=== PATIENT | female | born 1930 | race Caucasian/White ===

== ENCOUNTER 2019-04-25 23:04 | Observation (INO) | payer OTHER ==
[~2019-04-25] VITALS: Ht 142.2 cm; Wt 47.2 kg
--- NOTE | 2019-04-25 23:06 | NUR ---
KHOIA ON GURNEY TO BED #8
[2019-04-25 23:10] VITALS: BP 143/74
--- NOTE | 2019-04-25 23:19 | NUR ---
PATIENT BIBA C/O HEADACHE. PT STATES "I FELT DIZZY, LIKE THE ROOM IS SPINNING". DENIES N/V/D; SKIN IS PINK/WARM/DRY; AAOX4, IN NO DISTRESS, PATIENT DENIES ANY PAIN AT THIS TIME, VSS; PATIENT POSITIONED FOR COMFORT; HOB ELEVATED; BEDRAILS UP X2; BED DOWN. DR. ZULETA MADE AWARE.
[2019-04-25] MEDS ORDERED: NACL 0.9% 500 ML IV SCH (23:36)
[2019-04-26 00:04] LABS: BASOPHILS # (AUTO) 0.1 K/uL (0.00-0.22); BASOPHILS % (AUTO) 1.7 % (0.0-2.0); EOSINOPHILS % (AUTO) 0.5 % (0.0-4.0); HEMATOCRIT 40.3 % (36-48); HEMOGLOBIN 13.1 g/dL (12.0-16.0); LYMPHOCYTES # (AUTO) 0.4 K/uL (2.5-16.5); LYMPHOCYTES % (AUTO) 6.1 % (20.5-51.1); MEAN CORPUSCULAR HEMOGLOBIN 29 pg (27-31); MEAN CORPUSCULAR HGB CONC 33 g/dL (33-37); MONOCYTES # (AUTO) 0.4 K/uL (0.8-1.0); MONOCYTES % (AUTO) 6.8 % (1.7-9.3); NEUTROPHILS # (AUTO) 5.1 K/uL (1.8-7.7); PLATELET COUNT (AUTO) 170 K/uL (140-450); RED BLOOD CELL COUNT(AUTO) 4.53 MIL/uL (4.20-5.40); RED CELL DISTRIBUTION WIDTH 15.9 % (11.6-13.7); WHITE BLOOD COUNT (AUTO) 6.1 K/uL (4.8-10.8)
[2019-04-26 00:10] LABS: ANION GAP 12.4 (8-16); CARBON DIOXIDE 26.5 mmol/L (21-32); CHLORIDE 106 mmol/L (98-107); GLUCOSE 156 mg/dL (74-106); POTASSIUM 3.9 mmol/L (3.5-5.1); SODIUM SERUM 141 mmol/L (136-145); UREA NITROGEN, BLOOD 29 mg/dL (7-18)
[2019-04-26 00:16] LABS: ALBUMIN 3.5 g/dL (3.4-5.0); ASPARTATE AMINOTRANSFERASE 67 U/L (15-37); TOTAL BILIRUBIN 0.6 mg/dL (0.0-1.0)
[2019-04-26 00:22] LABS: PROTHROMBIN TIME 26.8 secs (10.8-13.4)
[2019-04-26 00:24] LABS: NEUTROPHILS % (AUTO) 84.9 % (42.2-75.2)
[2019-04-26] MEDS ORDERED: ASPIRIN 81 MG TAB.CHEW PO ONE (00:45)
--- NOTE | 2019-04-26 01:18 | NUR ---
PT REMAINS GCS 15, RESPIRATIONS EVEN AND UNLABORED. VSS, NO ACUTE DISTRESS AT THIS TIME. WILL CONTINUE TO MONITOR
[2019-04-26 01:20] LABS: APPEARANCE,URINE CLEAR (CLEAR); BILIRUBIN,URINE NEGATIVE (NEGATIVE); BLOOD, URINE TRACE-I (NEGATIVE); COLOR,URINE YELLOW (YELLOW); LEUKOCYTE ESTERASE ,URINE NEGATIVE (NEGATIVE); NITRITE, URINE NEGATIVE (NEGATIVE); UGLUCOSE NEGATIVE (NEGATIVE)
--- NOTE | 2019-04-26 01:30 | NUR ---
RECEIVED REPORT FROM DARRYL ZHANG. TRANSFER OF CARE AT THIS TIME.
--- NOTE | 2019-04-26 01:35 | NUR ---
PT DAUGHTER CALLED, ANTHONY CONTACT # IS [phone]. DAUGHTER STATED THAT PT IS ON COUMADIN AND HAS MEDICAL HX OF ASTHMA, OPEN HEART SURGERY AND A MICHANICAL VALVE REPLACEMENT.
[2019-04-26 01:45] LABS: RBC,URINE 0-5 /HPF (0-5); WBC,URINE 0-5 /HPF (0-5)
[2019-04-26] MEDS ORDERED: HYDROcodone/APAP 5/325 MG 1 TAB TAB PO PRN (02:30)
[2019-04-26] MEDS ORDERED: ACETAMINOPHEN 325 MG TAB PO PRN (02:30)
[2019-04-26] MEDS ORDERED: ONDANSETRON 4 MG/2 ML VIAL IVP PRN (02:30)
--- NOTE | 2019-04-26 02:35 | NUR ---
Patient appears to be resting comfortably in bed. Vital Signs within normal limits. Respirations even and unlabored. Skin pink, warm, dry. No s/sx distress at this time.
[2019-04-26] MEDS ORDERED: ALBU0.0912 IH (02:49)
[2019-04-26] MEDS ORDERED: WARF2TAB79 PO (02:49)
[2019-04-26] MEDS ORDERED: FLUT1POW3 IH (02:49)
--- NOTE | 2019-04-26 02:55 | NUR ---
PT AMBULATED TO CHAIR WITH ASSIST TO PUT ON HOSPITAL SOCKS. PT REPORTS FEELING DIZZY WHILE AMBULATING.
--- NOTE | 2019-04-26 03:06 | NUR ---
Patient will be admitted to care of Dr. Wei. Admited to tele. Will go to room 110B. Belongings list completed. Report to DARRYL Wetzel.
[2019-04-26 03:10] VITALS: BP 130/89
--- NOTE | 2019-04-26 03:10 | NUR ---
PT BROUGHT UP TO THE FLOOR VIA GURNEY ESCORTED BY MARYCRUZ ANDREWS AND SHAISTA ANDREWS ER NURSES. PT WAS WHEELED TO ROOM 110 AND WALKED WITH ASSISTANCE TO ROOM 110 BED B. PT IS AOX3-4 NO C/O OF PAIN AND SKIN INTACT. PT HERE DUE TO NEAR SYNCOPAL EPISODE AT HOME. 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 MRSA SWAB DONE AND PT V/S FOLLOWS T 97.7 P 98 R18 B/P 130/89 02 97% ON ROOM AIR.
--- NOTE | 2019-04-26 03:45 | NUR ---
MD DR. QUICK IS PRIMARY , ORDERED N/S AT 75MLS/HR. PT IN LOW BED WITH ALL FALLS PRECAUTIONS IN PLACE. ALL REQUESTED NEEDS ATTENDED.
[2019-04-26 04:00] VITALS: BP 142/71
[2019-04-26] MEDS: NACL 0.9% 1,000 ML IV SCH ×2 (04:54→16:40)
--- NOTE | 2019-04-26 05:21 | NUR ---
PT IN BED C/O RESTLESS LEGS. SEQUENTIALS WERE ORDERED, [employer] IN[employer]GRATION SPECIALIST AWARE AND WILL BRING TO FLOOR. PT IS AWAKE C/O NO PAIN BUT LOWER LEGS FEEL DISCOMFORT. PT UP TO TOILET WITH ASSISTANCE ORTHOSTATIC B/P TAKEN STANDING (139/76) SITTING(140/70)/ AND LYING DOWN B/P (142/72). PT IV FEEL OUT OF LEFT AC WITH CANNULA INTACT. MAY TRY TO PUT ANOTHER IV IN OR WILL ENDORSE TO AM SHIFT TO DO. PT REMAINS ON FALLS PRECAUTIONS ALL REQUESTED NEEDS ATTENDED.
[2019-04-26 05:52] LABS: HEMATOCRIT 39.9 % (36-48); MEAN CORPUSCULAR HEMOGLOBIN 29 pg (27-31); MEAN CORPUSCULAR HGB CONC 33 g/dL (33-37); MEAN CORPUSCULAR VOLUME 88.3 fL (80-94); PLATELET COUNT (AUTO) 167 K/uL (140-450); RED BLOOD CELL COUNT(AUTO) 4.52 MIL/uL (4.20-5.40); RED CELL DISTRIBUTION WIDTH 15.9 % (11.6-13.7); WHITE BLOOD COUNT (AUTO) 6.5 K/uL (4.8-10.8)
[2019-04-26 06:30] LABS: LYMPHOCYTES % (MANUAL) 9 % (20-46); MONOCYTES % (MANUAL) 9 % (5-12)
[2019-04-26 06:49] LABS: ANION GAP 13.7 (8-16); CARBON DIOXIDE 23.6 mmol/L (21-32); CHLORIDE 107 mmol/L (98-107); CREATININE 0.9 mg/dL (0.6-1.3); GLUCOSE 118 mg/dL (74-106); POTASSIUM 4.3 mmol/L (3.5-5.1); SODIUM SERUM 140 mmol/L (136-145); UREA NITROGEN, BLOOD 27 mg/dL (7-18)
--- NOTE | 2019-04-26 07:25 | NUR ---
REPORT GIVEN TO PERCY ANDREWS DAYSHIFT NURSE AT BEDSIDE FOR CONTINUITY OF CARE. PT IN STABLE CONDITION.
--- NOTE | 2019-04-26 07:26 | NUR ---
RECEIVED REPORT FROM SHELVING SUPERVISOR NURSE. PATIENT LYING DOWN IN BED COMFORTABLY. NO DISTRESS NOTED. DENIES ANY PAIN. AAOX4, CALM, COOPERATIVE, SKIN COLOR APPROPRIATE TO ETHNICITY, WARM TO TOUCH. SKIN INTACT. RESPIRATIONS EVEN, UNLABORED, ON ROOM AIR. ABDOMEN SOFT, NON-DISTENDED. IV SITE INTACT, PATENT, AND RUNNING IVF PER MD ORDERS. REVIEWED PLAN OF CARE WITH PATIENT. PATIENT VERBALIZED UNDERSTANDING. SAFETY MEASURES IN PLACE, CALL LIGHT WITHIN REACH. WILL CONTINUE TO MONITOR.
[2019-04-26 08:00] VITALS: BP 113/62
--- NOTE | 2019-04-26 08:44 | NUR ---
PATIENT HAS BEEN SCREENED AND CATEGORIZED HIGH NUTRITION RISK. PATIENT WILL BE SEEN WITHIN 3-5 DAYS OF ADMISSION. 04/28/19-04/30/19 Addendum: 04/26/19 at [address] PATIENT HAS BEEN SCREENED AND CATEGORIZED MODERATE NUTRITION RISK. PATIENT WILL BE SEEN WITHIN 3-5 DAYS OF ADMISSION. 04/28/19-04/30/19
[2019-04-26] MEDS ORDERED: ALBUTEROL 0.083% 2.5 MG/3 ML NEBU INH PRN (09:15)
[2019-04-26] MEDS ORDERED: LOVENOX 1MG/KG Q12H SUBQ SCH (09:45)
[2019-04-26 09:53] LABS: PROTHROMBIN TIME 23.7 secs (10.8-13.4)
[2019-04-26 12:00] VITALS: BP 142/70
[2019-04-26] MEDS: DOCUSATE SODIUM 100 MG GELCAP PO PRN (13:00)
--- NOTE | 2019-04-26 13:00 | NUR ---
PATIENT REPORTS CONSTIPATION. COLACE GIVEN AT THIS TIME. WILL CONTINUE TO MONITOR.
--- NOTE | 2019-04-26 15:15 | NUR ---
Hiv Counselor Note: I received MD's snf order, physical therapy evaluation still spending.
[2019-04-26 16:00] VITALS: BP 122/74
--- NOTE | 2019-04-26 16:49 | NUR ---
PATIENT SITTING IN BED. NO DISTRESS NOTED. DENIES ANY PAIN. SCHEDULED MEDICATIONS DUE GIVEN. WILL CONTINUE TO MONITOR.
[2019-04-26] MEDS ORDERED: WARFARIN 1 MG TAB PO SCH (17:00)
--- NOTE | 2019-04-26 19:23 | NUR ---
GAVE REPORT TO SPENT GRAIN DRYER NURSE FOR CONTINUITY OF CARE. PATIENT IN STABLE CONDITION.
--- NOTE | 2019-04-26 19:25 | NUR ---
RECEIVED REPORT FROM PERCY ANDREWS DAYSHIFT NURSE AT BEDSIDE FOR CONTINUITY OF CARE, PT IN STABLE CONDITION.
--- NOTE | 2019-04-26 19:55 | NUR ---
PT IN BED WITH ALL FALLS PRECAUTIONS IN PLACE. PT IS AOX2 WITH NO C/O VOICED AT THIS TIME. RESPIRATIONS EVEN AND UNLABORED ON ROOM AIR. LUNGS CLEAR TO AUSCULTATION. RT AT BEDSIDE PROVIDING NEBULIZER TREATMENT. V/S FOLLOWS T 98.5 P 77 R 18 B/P 125/57 02 97% ON ROOM AIR. PT IV SITE ON RIGHT FOREARM INTACT AND RUNNING N/S AT 75MLS/HR ORDERED. CALL RUCKER IN REACH.
[2019-04-26 20:00] VITALS: BP 125/57
--- NOTE | 2019-04-26 20:00 | NUR ---
IV FLUIDS RUNNING N/S AT 75MLS/HR. VIA R FOREARM 22G IV SITE TOTAL IV FLUIDS 125MLS OF N/S INFUSED.
[2019-04-26] MEDS ORDERED: NON-FORMULARY ITEM (Warfarin Sodium* (Coumadin*) 1 TAB) PO SCH (21:00)
--- NOTE | 2019-04-26 21:25 | NUR ---
LATEST TROPONIN LEVEL IS 0.186 WHICH HAS BEEN TRENDING DOWN. [facility] CALLED AND MESSAGE LEFT WITH COMMUNICATIONS REPRESENTATIVE JESSY MIRAMONTES.
--- NOTE | 2019-04-26 22:00 | NUR ---
PT IN BED IV SITE RUNNING AT 75ML/HR OF N/S TOTAL OF 250 N/S THIS SHIFT IV SITE INTACT AND ASYMPTOMATIC.
--- NOTE | 2019-04-26 23:30 | NUR ---
PT IN BED NO S/S OF PAIN OR DISTRESS NOTED. ALL FALLS PRECAUTIONS IN PLACE. V/S FOLLOWS T 97.5 P 78 R 18 B/P 128/66 / 02 96% ON ROOM AIR. IV SITE ON RIGHT FOREARM INTACT AND FLUSHED PATENT. ALL REQUESTED NEEDS ATTENDED AND CALL RUCKER IN REACH.
[2019-04-27] VITALS: BP 124/61
--- NOTE | 2019-04-27 | NUR ---
PT ESCORTED TO TOILET AND BACK IV SITE ON R F/A INTACT AND RUNNING N/S AT 75MLS/HR. A TOTAL OF 500MLS/N/S INFUSED.
--- NOTE | 2019-04-27 02:00 | NUR ---
NEW FLUID BAG OF N/S REPLACED N/S RUNNING AT 75MLS TOTAL OF 750MLS OF N/S INFUSED.ALL FALLS PRECAUTIONS IN PLACE.
[2019-04-27 04:00] VITALS: BP 104/77
--- NOTE | 2019-04-27 04:00 | NUR ---
PT IN BED SLEEPING IV SITE INTACT AND CONTINUES TO RUN 75MLS/HR. PT INFUSED AT TOTAL OF 1LITER OF N/S. ALL FALLS PRECAUTIONS IN PLACE.
[2019-04-27] MEDS: NACL 0.9% 1,000 ML IV SCH (05:40)
--- NOTE | 2019-04-27 06:00 | NUR ---
PT ESCORTED TO TOILET AND BACK IV SITE INTACT AND CONTINUES TO RUN 75MLS/HR OF N/S. TOTAL INFUSED NORMAL SALINE THIS SHIFT IS 1250MLS OF N/S.
--- NOTE | 2019-04-27 07:15 | NUR ---
REPORT GIVEN TO LUIS FERNANDO RN DAYSHIFT NURSE AT BEDSIDE FOR CONTINUITY OF CARE, PT IN STABLE CONDITION.
--- NOTE | 2019-04-27 07:16 | NUR ---
RECEIVED ENDORSEMENT FROM UM RN NURSE. PATIENT IS AAOX4, [place] SPEAKING. RESPIRATIONS ARE EVEN AND UNLABORED ON ROOM AIR. PATIENT DENIES ANY PAIN AT THIS TIME. LEFT FA 22G IV INTACT, PATENT, AND INFUSING IVF. PLAN OF CARE WAS REVIEWED WITH PATIENT, PATIENT VERBALIZED UNDERSTANDING. SAFETY MEASURES IN PLACE, CALL LIGHT WITHIN REACH.
[2019-04-27 07:19] LABS: PROTHROMBIN TIME 21.2 secs (10.8-13.4)
[2019-04-27 07:33] LABS: ANION GAP 12.3 (8-16); CHLORIDE 106 mmol/L (98-107); CREATININE 0.6 mg/dL (0.6-1.3); GLUCOSE 87 mg/dL (74-106); POTASSIUM 4.3 mmol/L (3.5-5.1); SODIUM SERUM 138 mmol/L (136-145); UREA NITROGEN, BLOOD 15 mg/dL (7-18)
[2019-04-27 07:37] LABS: MAGNESIUM 1.8 mg/dL (1.8-2.4); PHOSPHORUS 2.2 mg/dL (2.5-4.9)
[2019-04-27 07:52] LABS: BASOPHILS # (AUTO) 0.1 K/uL (0.00-0.22); BASOPHILS % (AUTO) 0.8 % (0.0-2.0); EOSINOPHILS # (AUTO) 0.1 K/uL (0-0.4); EOSINOPHILS % (AUTO) 1.4 % (0.0-4.0); HEMATOCRIT 40.8 % (36-48); HEMOGLOBIN 13.3 g/dL (12.0-16.0); LYMPHOCYTES # (AUTO) 0.7 K/uL (2.5-16.5); LYMPHOCYTES % (AUTO) 11.4 % (20.5-51.1); MEAN CORPUSCULAR HEMOGLOBIN 29 pg (27-31); MEAN CORPUSCULAR HGB CONC 33 g/dL (33-37); MEAN CORPUSCULAR VOLUME 88.9 fL (80-94); MONOCYTES # (AUTO) 0.7 K/uL (0.8-1.0); MONOCYTES % (AUTO) 10.2 % (1.7-9.3); NEUTROPHILS # (AUTO) 4.9 K/uL (1.8-7.7); NEUTROPHILS % (AUTO) 76.2 % (42.2-75.2); PLATELET COUNT (AUTO) 185 K/uL (140-450); RED BLOOD CELL COUNT(AUTO) 4.59 MIL/uL (4.20-5.40); RED CELL DISTRIBUTION WIDTH 16.4 % (11.6-13.7); WHITE BLOOD COUNT (AUTO) 6.4 K/uL (4.8-10.8)
[2019-04-27 08:00] VITALS: BP 106/79
[2019-04-27] MEDS ORDERED: LOVENOX 1MG/KG Q12H SUBQ SCH (08:00)
[2019-04-27] MEDS ORDERED: BREO INH SCH (09:00)
--- NOTE | 2019-04-27 09:00 | NUR ---
ADMINISTERED SCHEDULED MEDICATIONS. PATIENT TOLERATED WELL. DAUGHTER IS PRESENT AT THE BEDSIDE, NO OTHER NEEDS AT THIS TIME. DAUGHTER STATED SHE WOULD TAKE PATIENTS MEDS BACK HOME WITH HER.
[2019-04-27] MEDS: DOCUSATE SODIUM 100 MG GELCAP PO PRN (09:04)
--- NOTE | 2019-04-27 09:15 | NUR ---
PATIENT PROVIDED WALKER TO AMBULATE. AMBULATING WITH DAUGHTER AROUND UNIT WITH STEADY GAIT.
[2019-04-27] MEDS ORDERED: MAG SULF 2000 MG/WATER PREMIX 50 ML IV SCH (10:00)
--- NOTE | 2019-04-27 10:25 | NUR ---
ADMINISTERED SCHEDULED MEDICATION. PATIENT TOLERATED WELL, NO OTHER NEEDS AT THIS TIME. WILL CONTINUE TO MONITOR.
--- NOTE | 2019-04-27 11:50 | NUR ---
DISCHARGE INSTRUCTIONS GIVEN TO PATIENT. MEDICATION WAS EXPLAINED. ALL QUESTIONS AND CONCERNS WERE ANSWERED. IV WAS REMOVED, CANNULA INTACT WITH MINIMAL BLEEDING. PATIENT VERBALIZED UNDERSTANDING OF INSTRUCTIONS AND HAD NO FURTHER QUESTIONS OR CONCERNS. PATIENT TO BE DISCHARGED HOME. DAUGHTER AT BEDSIDE TO TAKE PATIENT HOME. ID BAND WAS REMOVED. PATIENT TO CHANGE AND THEN BE ESCORTED OFF UNIT VIA WHEELCHAIR.
--- NOTE | 2019-04-27 12:32 | NUR ---
PATIENT ESCORTED OFF UNIT VIA WHEELCHAIR. ALL BELONGINGS LEFT WITH PATIENT. NO OTHER NEEDS AT THIS TIME. PATIENT IS STABLE AT THIS TIME.
[2019-04-27] MEDS ORDERED: WARFARIN 1 MG TAB PO SCH (17:00)
== END 2019-04-27 12:32 | disposition home or self-care (01) ==
LOC: MED 23:04 → MTU 04-26 02:26
PROVIDERS: ADMIT Internal Medicine Pulmonary Disease; ATTEND Internal Medicine Pulmonary Disease
DX: R42 Dizziness and giddiness (principal); R79.89 Other specified abnormal findings of blood chemistry; I99.8 Other disorder of circulatory system
CPT/HCPCS: 36415; 70450; 71045; 80048; 80053; 81001; 83605; 83735; 83880; 84100; 84484; 85025; 85610; 85730; 87040; 87081; 87086; 93005; 94760; 96361; 96365; 96366; 99285; G0378; J3475; J7030; Q0092